=== PATIENT | male | born 1985 | race Caucasian/White ===

== ENCOUNTER 2022-07-09 15:21 | Emergency (ER) | payer OTHER ==
[2022-07-09 15:45] VITALS: BP 151/91; PULSE 91; RESP 20; TEMP 98; BMI 29.7
[2022-07-09] MEDS ORDERED: IBUPROFEN 400 MG TABLET (FP) PO ONE ×2 (15:50→15:55)
== END 2022-07-09 15:59 | disposition home or self-care (01) ==
LOC: FER 15:21
DX: M54.2 Cervicalgia (principal)
CPT/HCPCS: 99283-25